=== PATIENT | male | born 1970 | race Caucasian/White ===

== ENCOUNTER 2024-11-29 09:55 | Emergency (ER) | payer OTHER, SELFPAY ==
[2024-11-29 10:01] VITALS: BP 133/88
[2024-11-29 10:04] VITALS: BMI 24.6
[2024-11-29] MEDS: ADACEL 0.5 ML IM (11:47)
[2024-11-29 11:55] VITALS: BP 137/79
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
[2024-11-29] MEDS: NORCO 5/325 2 TABLET PO (12:55)
== END 2024-11-29 13:00 | disposition home or self-care (01) ==
LOC: EMR 09:55
PROVIDERS: EMERGENCY PHYSICIAN Emergency Medicine; FAMILY PHYSICIAN Family Medicine
DX: S43.101A Unspecified dislocation of right acromioclavicular joint, initial encounter (principal); S60.411A Abrasion of left index finger, initial encounter; S80.211A Abrasion, right knee, initial encounter; S60.512A Abrasion of left hand, initial encounter; V11.4XXA Pedal cycle driver injured in collision with other pedal cycle in traffic accident, initial encounter; Y93.55 Activity, bike riding; Z23 Encounter for immunization
CPT/HCPCS: 99283; 90471; 73030; 73130; 90715

== ENCOUNTER → 2024-12-30 19:14 | Outpatient (REF) | payer OTHER, SELFPAY | LOC: PAVMRI 19:14 | PROVIDERS: ATTENDING PHYSICIAN Orthopaedic Surgery; FAMILY PHYSICIAN Family Medicine | DX: M25.511 Pain in right shoulder (principal) | CPT/HCPCS: 73221 ==